=== PATIENT | female | born 1990 | race Caucasian/White ===

== ENCOUNTER → 2017-01-29 | Outpatient (CLI) | payer MEDICAID ==
--- NOTE | 2017-01-29 16:10 | RAD ---
PROCEDURE: Chest,2 Views CLINICAL HISTORY: PERSONAL HISTORY OF TB INDICATION: Same as above COMPARISON: None TECHNIQUE: PA and and lateral chest radiographs were obtained. FINDINGS: There is no paratracheal or perihilar lymphadenopathy There are no discrete airspace infiltrates, pneumothoraces or pleural effusions. The pulmonary vascularity is normal The cardiomediastinal silhouette is unremarkable for patient's age and sex. IMPRESSION: There is no acute pleural-parenchymal process seen in the imaged lung [place]. Place of interpretation: Teler[facility]iology. Electronically signed by: Shiva Boothe MD 01/29/2017 4:09 PM CDT Workstation: [id number]
== END | disposition home or self-care (01) ==
LOC: RAD 15:48
PROVIDERS: ATTEND Obstetrics & Gynecology
DX: O98 Maternal infectious and parasitic diseases classifiable elsewhere but complicating pregnancy, childbirth and the puerperium (principal); Z86.11 Personal history of tuberculosis; Z3A.13 13 weeks gestation of pregnancy

== ENCOUNTER → 2017-05-21 | Outpatient (CLI) | payer OTHER | LOC: LAB.O 10:19 | PROVIDERS: ATTEND Obstetrics & Gynecology | DX: Z34.83 Encounter for supervision of other normal pregnancy, third trimester (principal); Z3A.28 28 weeks gestation of pregnancy ==